=== PATIENT | female | born 1980 | race Caucasian/White ===

== ENCOUNTER 2020-10-21 11:13 | Emergency (ER) | payer BC, OTHER ==
[2020-10-21 12:03] LABS: Urine Blood Trace-lysed (Negative); Urine Glucose Negative (Negative); Urine Protein 2+ (Negative); Urine Specific Gravity >=1.030 (1.005-1.030); Urine pH 5.5 (5.0-7.0)
[2020-10-21 12:11] LABS: Absolute Lymphocytes (CBC) 0.8 K/uL (0.7-4.9); Basophils % 0.5 % (0-1.3); Hematocrit 39.2 % (36.0-45.0); Lymphocytes % 21.6 % (15.3-44.8); MPV 9.3 fL (7.6-11.3)
[2020-10-21 12:29] LABS: ALT/SGPT 34 U/L (12-78); AST/SGOT 27 U/L (15-37); Albumin 3.4 g/dL (3.4-5.0); Alkaline Phosphatase 80 U/L (45-117); BUN Blood Urea Nitrogen 9 mg/dL (7-18); Bicarbonate 24 mmol/L (21-32); Bilirubin Direct 0.1 mg/dL (0-0.2); Bilirubin Total 0.4 mg/dL (0.2-1.0); Glucose Level 136 mg/dL (74-106); Lipase 97 U/L (73-393); Potassium 3.9 mmol/L (3.5-5.1); Protein, Total 7.1 g/dL (6.4-8.2); Sodium Level 136 mmol/L (136-145)
--- NOTE | 2020-10-21 12:45 | RAD REPORT ---
EXAM DESCRIPTION: CT - Abdomen Pelvis W Contrast - 10/21/2020 12:20 pm CLINICAL HISTORY: Abdominal pain COMPARISON: none. TECHNIQUE: Computed axial tomography of the abdomen pelvis was obtained. 100 cc Isovue-300 was admin istered intravenously. Oral contrast was not requested which limits evaluation of bowel. All CT scans are performed using dose optimization technique as appropriate and may include automated exposure control or mA/KV adjustment according to patient size. FINDINGS: Mild to moderate bilateral patchy ground-glass opacities within the lungs bilaterally. Fatty liver. Cholelithiasis. Spleen, pancreas and adrenals unremarkable. Right kidney unremarkable. 2 millimeter left renal calculus. No hydronephrosis. Small renal cysts. Normal appendix. Peripherally calcified uterine mass measuring 6.7 centimeters. There is no evidence of diverticulitis. Small umbilical hernia IMPRESSION: Mild to moderate bilateral patchy ground-glass opacities within the lung bases bilateral ly. This can be seen with Covid pneumonia Cholelithiasis 6.7 centimeter peripherally calcified uterine mass likely a fibroid. Follow-up ultrasound in 6 months recommended to assess stability
[2020-10-21] MEDS ORDERED: ONDANSETRON 4 MG/2 ML VIAL ONE (13:00)
[2020-10-21] MEDS ORDERED: NA CHLORIDE 0.9% 1,000 ML ONE (13:01)
[2020-10-21 14:13] LABS: Urine Specific Gravity/Preg >1.030 (1.005-1.030)
[2020-10-21] MEDS ORDERED: CASIRIVIMAB/IMDEVIMAB 10 ML VIAL ONE (16:04)
[2020-10-21] MEDS ORDERED: NA CHLORIDE 0.9% 250 ML ONE (16:05)
--- NOTE | 2020-10-21 16:22 | EDPHYS ---
Physician Documentation [facility] Name: Carolina Boyce Age: 39 yrs Sex: Female : 1980 Arrival Date: 10/21/2020 Time: 11:18 Bed DIS11 Private MD: ED Physician Cosme Antonio HPI: 10/21 12:10 This 39 yrs old Female presents to ER via Ambulatory with complaints of rn Abdominal Pain, Dizziness, Vomiting. 12:11 The patient presents with abdominal pain in the left lower quadrant. rn 12:11 Onset: The symptoms/episode began/occurred 3 day(s) ago. The symptoms do not radiate. rn Associated signs and symptoms: Pertinent positives: nausea and vomiting, diarrhea, fever, Pertinent negatives: blood in stools, chest pain. The symptoms are described as achy, crampy. Modifying factors: The symptoms are alleviated by nothing, the symptoms are aggravated by touching the area. Severity of pain: At its worst the pain was moderate in the emergency department the pain is unchanged. The patient has not experienced similar symptoms in the past. The patient has not recently seen a physician. Patient reports thinks has Covid, reports generalized weakness/fatigue/dizziness. Reports biggest problem is left lower quadrant abdominal pain with nausea/vomiting/diarrhea. Reports mild cough but denies shortness of breath. States has been positive for Covid this past week. She was tested 2 days into illness and was negative. Also took 2 - tests at home. Historical: - Home Meds: 14:30 AMAUR THYROID [Active]; Iron CR Oral [Active]; Vitamin Oral [Active]; ld1 - PMHx: 14:30 Hypothyroidism; ld1 - Immunization history:: Client reports having NOT received the Covid vaccine. - Family history:: not pertinent. - Social history:: Smoking status: Patient denies any tobacco usage or history of. - Hospitalizations: : No recent hospitalization is reported. ROS: 12:11 Constitutional: Positive for fever and chills Eyes: Negative for injury, pain, redness, rn and discharge, ENT: Positive for sore throat Neck: Negative for injury, pain, and swelling, Cardiovascular: Negative for chest pain, palpitations, and edema, Respiratory: Positive for mild cough Abdomen/GI: Positive for abdominal pain/vomiting/diarrhea Back: Negative for injury and pain, : Negative for injury, bleeding, discharge, and swelling, MS/Extremity: Negative for injury and deformity, Skin: Negative for injury, rash, and discoloration, Neuro: Positive for generalized weakness/dizziness/fatigue 12:11 All other systems are negative. Exam: 12:11 Constitutional: This is a well developed, well nourished patient who is awake, alert, rn sitting in wheelchair Head/Face: Normocephalic, atraumatic. Eyes: Pupils equal round and reactive to light, extra-ocular motions intact. ENT: Dry mucous membranes, no stridor Cardiovascular: Regular rate and rhythm. No pulse deficits. Respiratory: No increased work of breathing, no retractions or nasal flaring. Abdomen/GI: Soft, mild left lower quadrant tenderness, no masses, no guarding Skin: Warm, dry MS/ Extremity: Pulses equal, no cyanosis. Neuro: Awake and alert, GCS 15 Vital Signs: 11:35 BP 90 / 60; Pulse 77; Resp 18; Temp 98.5; Pulse Ox 93% on R/A; da3 14:30 BP 102 / 65; Pulse 80; Resp 18; Pulse Ox 95% on R/A; ld1 15:34 BP 126 / 51; Pulse 76; Resp 18; Pulse Ox 99% on R/A; ld1 MDM: 11:37 Patient medically screened. rn 16:19 Differential diagnosis: appendicitis, diverticulitis, gastritis, gastroesophageal rn reflux disease, non-specific abd pain, pancreatitis, urinary tract infection, Covid. Data reviewed: vital signs, nurses notes, lab test result(s), EKG, radiologic studies, CT scan, plain films, and as a result, I will discharge patient. Counseling: I had a detailed discussion with the patient and/or guardian regarding: the historical points, exam findings, and any diagnostic results supporting the discharge/admit diagnosis, lab results, radiology results, the need for outpatient follow up, to return to the emergency department if symptoms worsen or persist or if there are any questions or concerns that arise at home. Response to treatment: the patient's symptoms have markedly improved after treatment, and as a result, I will discharge patient. Special discussion: I discussed with the patient/guardian in detail that at this point there is no indication for admission to the hospital. It is understood, however, that if the symptoms persist or worsen the patient needs to return immediately for re-evaluation. ED course: Patient given Regeneron, given overweight and diabetic on Metformin. No indication for emergent admission. Oxygen 98%. Will DC home after infusion complete. 10/21 11:43 Order name: Basic Metabolic Panel 10/21 11:43 Order name: CBC with Diff; Complete Time: 12:31 10/21 11:43 Order name: Hepatic Function; Complete Time: 12:31 10/21 11:43 Order name: Lipase; Complete Time: 12:31 10/21 11:43 Order name: Basic Metabolic Panel; Complete Time: 12:31 [facility] 10/21 11:43 Order name: CT Abd/Pelvis - IV Contrast Only; Complete Time: 13:23 10/21 12:02 Order name: Urine --Ancillary (enter results); Complete Time: 14:28 ok 10/21 12:03 Order name: Urine Dipstick-Ancillary; Complete Time: 12:31 [facility] 10/21 13:02 Order name: CREATININE WHOLE BLOOD; Complete Time: 13:23 [facility] 10/21 15:30 Order name: SARS-COV-2 RT PCR [facility] 10/21 11:43 Order name: IV Saline Lock; Complete Time: 11:50 10/21 11:43 Order name: Labs collected and sent; Complete Time: 11:50 10/21 11:43 Order name: Urine Dipstick-Ancillary (obtain specimen); Complete Time: 13:52 10/21 11:43 Order name: Urine Test (obtain specimen); Complete Time: 13:52 rn Administered Medications: 12:46 Drug: NS 0.9% 1000 ml Route: IV; Rate: 1000 ml; Site: right antecubital; ss 12:46 Drug: Zofran (Ondansetron) 4 mg Route: IVP; Site: right antecubital; ss 16:15 Drug: REGEN-COV Dose Pack 120 mg/mL-120 mg/mL (EUA) 600 mg Route: IV; Rate: calculated ld1 rate; Site: right antecubital; Disposition Summary: 10/21/20 16:21 Discharge Ordered Location: Home rn Problem: new rn Symptoms: have improved rn Condition: Stable rn Diagnosis - Pneumonia due to SARS-associated coronavirus rn - Dehydration rn - Vomiting rn Followup: rn - With: Private Physician - When: As needed - Reason: Recheck today's complaints, Re-evaluation by your physician Discharge Instructions: - Discharge Summary Sheet rn - Dehydration, Adult rn - COVID-19 rn - COVID-19 Frequently Asked Questions rn Forms: - Medication Reconciliation Form rn - Thank You Letter rn - 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 EDMS EDMS 14:18 13:23 CORONAVIRUS+MR.LAB.BRZ ordered. EDMS EDMS
--- NOTE | 2020-10-21 16:22 | ER ---
Nurse's Notes [facility] Name: Carolina Boyce Age: 39 yrs Sex: Female : 1980 Arrival Date: 10/21/2020 Time: 11:18 Bed DIS11 Private MD: Diagnosis: Pneumonia due to SARS-associated coronavirus;Dehydration;Vomiting Presentation: 10/21 11:32 Chief complaint: Patient states: Stomach pain. Coronavirus screen: Client presents with da3 at least one sign or symptom that may indicate coronavirus-19. Ebola Screen: No symptoms or risks identified at this time. Risk Assessment: Do you want to hurt yourself or someone else? Patient reports no desire to harm self or others. 11:32 Method Of Arrival: Ambulatory da3 11:32 Acuity: PATY 3 da3 Triage Assessment: 11:37 General: Appears uncomfortable, Behavior is calm, cooperative. da3 Historical: - Home Meds: 14:30 AMAUR THYROID [Active]; Iron CR Oral [Active]; Vitamin Oral [Active]; ld1 - PMHx: 14:30 Hypothyroidism; ld1 - Immunization history:: Client reports having NOT received the Covid vaccine. - Family history:: not pertinent. - Social history:: Smoking status: Patient denies any tobacco usage or history of. - Hospitalizations: : No recent hospitalization is reported. Assessment: 14:29 General: Appears in no apparent distress. comfortable, Behavior is calm, cooperative, ld1 appropriate for age. Pain: Complains of pain in face Pain does not radiate. Pain currently is 8 out of 10 on a pain scale. Quality of pain is described as throbbing, Pain began 2-3 days ago. Is continuous. Neuro: Level of Consciousness is awake, alert, obeys commands, Oriented to person, place, time, situation. Cardiovascular: Capillary refill < 3 seconds Patient's skin is warm and dry. Respiratory: Airway is patent Respiratory effort is even, unlabored, Respiratory pattern is regular, symmetrical. GI: Abdomen is flat, non-distended, Bowel sounds present X 4 quads. Abd is soft Abdomen is tender to palpation. : No signs and/or symptoms were reported regarding the genitourinary system. EENT: No signs and/or symptoms were reported regarding the EENT system. Derm: No signs and/or symptoms reported regarding the dermatologic system. Musculoskeletal: No signs and/or symptoms reported regarding the musculoskeletal system. 14:40 Reassessment: Patient appears in no apparent distress at this time. Waiting on test ld1 results. Vital Signs: 11:35 BP 90 / 60; Pulse 77; Resp 18; Temp 98.5; Pulse Ox 93% on R/A; da3 14:30 BP 102 / 65; Pulse 80; Resp 18; Pulse Ox 95% on R/A; ld1 15:34 BP 126 / 51; Pulse 76; Resp 18; Pulse Ox 99% on R/A; ld1 ED Course: 11:18 Patient arrived in ED. ds1 11:34 Triage completed. da3 11:37 Cosme Antonio MD is Attending Physician. rn 11:50 Inserted saline lock: 20 gauge in right antecubital area, using aseptic technique. ga Blood collected. 12:20 CT Abd/Pelvis - IV Contrast Only In Process Unspecified. EDOR 14:31 Seda Rodriguez, RN is Primary Nurse. ld1 17:32 IV discontinued, intact, bleeding controlled, No redness/swelling at site. ld1 Administered Medications: 12:46 Drug: NS 0.9% 1000 ml Route: IV; Rate: 1000 ml; Site: right antecubital; ss 12:46 Drug: Zofran (Ondansetron) 4 mg Route: IVP; Site: right antecubital; ss 16:15 Drug: REGEN-COV Dose Pack 120 mg/mL-120 mg/mL (EUA) 600 mg Route: IV; Rate: calculated ld1 rate; Site: right antecubital; Outcome: 16:21 Discharge ordered by . rn 17:32 Discharged to home ambulatory. ld1 17:32 Condition: good 17:32 Discharge instructions given to patient, Instructed on discharge instructions, follow up and referral plans. medication usage, Demonstrated understanding of instructions, follow-up care, medications, Prescriptions given X 1. 17:33 Patient left the ED. ld1 Signatures: Dispatcher [employer] EDOR Preeti Guallpa ds1 Cosme Antonio MD MD rn Smirch, Shelby, RN RN ss Thompson, Moriah ga Seda Rodriguez RN RN ld1 Johnnie Tucker RN RN da3 Corrections: (The following items were deleted from the chart) 14:18 13:55 CORONAVIRUS+MRLAURA.BRZ drawn and sent. ld1 EDMS
[2020-10-21] MEDS ORDERED: NA CHLORIDE 0.9% 50 ML ONE (17:40)
[2020-10-21 18:02] VITALS: TEMP 98.5
[2020-10-21 18:09] VITALS: BP 126/51; O2SAT 99
== END 2020-10-21 17:33 | disposition home or self-care (01) ==
LOC: ER 11:13
DX: U07.1 COVID-19 (principal); J12.82 Pneumonia due to coronavirus disease 2019; E86.0 Dehydration; E03.9 Hypothyroidism, unspecified
CPT/HCPCS: 85025; 80048; 36415; 81025; 82565; 80076; 81003; 83690; 74177; 96375; 96374; 99284; U0003; Q9967; J7050; J7030; J2405

== ENCOUNTER 2024-01-11 06:04 | Observation (INO) | payer BC, OTHER ==
[2024-01-11] MEDS ORDERED: ONDANSETRON 4 MG/2 ML VIAL ONE ×2 (07:01→20:54)
[2024-01-11] MEDS ORDERED: MORPHINE 4 MG/ML SYR ONE (07:02)
[2024-01-11] MEDS ORDERED: NA CHLORIDE 0.9% 1,000 ML ONE (07:02)
[2024-01-11 07:19] LABS: Absolute Basophils 0.1 K/uL (0-0.5); Absolute Eosinophils 0.2 K/uL (0-0.5); Absolute Monocytes 0.6 K/uL (0.1-1.3); Absolute Neutrophil 6.2 K/uL (1.8-8.0); Eosinophils % 2.2 % (0-4.4); Hematocrit 36.8 % (36.0-45.0); Hemoglobin 12.7 g/dL (12.0-15.0); Lymphocytes % 21.7 % (15.3-44.8); MCH 30.1 pg (27.0-35.0); MCHC 34.4 g/dL (32.0-36.0); MCV 87.3 fL (80-100); MPV 8.8 fL (7.6-11.3); Monocytes % 7.1 % (3.3-12.3); Nucleated Red Blood Cells % 0.1 % (0-0); Platelets 286 thou/uL (152-406); RBC Red Blood Cell Count 4.22 M/uL (3.86-4.86); Red Cell Distribution Width 14.4 % (12.1-15.2)
[2024-01-11 07:25] LABS: Specific Gravity 1.018 (1.005-1.030)
[2024-01-11 07:26] LABS: Specific Gravity 1.018 (1.005-1.030); Urine Bilirubin NEGATIVE (Negative); Urine Blood 1+ (Negative); Urine Clarity Clear (Clear); Urine Color Light-Yellow (Yellow); Urine Glucose Negative (Negative); Urine Ketones NEGATIVE (Negative); Urine Nitrite Negative (Negative); Urine Protein NEGATIVE (Negative); Urine Urobilinogen Normal mg/dL (0.2-1.0); Urine pH 5.5 (5.0-7.0)
[2024-01-11 07:27] LABS: Sqamous Epithelial <5 /HPF (None Seen); Urine Ascorbic Acid Negative (Negative); Urine Culture Reflex Order NOT NEEDED; Urine Microscopic Reflex YN NO UMIC; Urine RBC <5 /HPF (None Seen); Urine WBC <5 /HPF (<5)
[2024-01-11 07:39] LABS: Albumin 3.2 g/dL (3.4-5.0); Albumin/Globulin Ratio 0.9 (1.1-1.8); Bilirubin Total 0.3 mg/dL (0.2-1.0); Globulin 3.7 g/dL (2.3-3.5); Protein, Total 6.9 g/dL (6.4-8.2)
--- NOTE | 2024-01-11 07:46 | RAD REPORT ---
EXAM: Right upper quadrant ultrasound. CLINICAL HISTORY: ABD PAIN COMPARISON: None. FINDINGS: Gallbladder: Shadowing gallstone is present in the gallbladder neck region. 5 mm polyp is also likely present along the wall of the gallbladder. Bile ducts: No intrahepatic or extrahepatic biliary dilatation. Common bile duct measures 7 mm. Limited imaging of the liver shows no concerning finding. IMPRESSION: Cholelithiasis noted. Common bile duct is mildly enlarged measuring 7 mm. MRCP may be of value for further evaluation if cl inically indicated.
--- NOTE | 2024-01-11 08:00 | RAD REPORT ---
EXAMINATION: CT ABDOMEN AND PELVIS WITH CONTRAST CLINICAL INDICATION: ABD PAIN TECHNIQUE: CT abdomen and pelvis was performed, after the administration of IV contrast, as per [facility] protocol. Axial, sagittal and coronal reconstructions were obtained. One or more of the following dose reduction techniques were used: Automated exposure control, adjustment of the mA and k V according to patient size, and iterative reconstruction. Unless otherwise specified, incidental findings do not require dedicated imaging follow-up. COMPARISON: 10/21/2020 FINDINGS: LOWER CHEST: The visualized lung bases are clear. LIVER: Significant fatty liver with hepatomegaly present. No focal lesion or biliary dilitation. Cho lelithiasis. SPLEEN: Normal size. No focal lesion. PANCREAS: No mass, ductal dilation, or [place]-pancreatic fluid. ADRENALS: Normal; no mass. KIDNEYS: Normal size and contour. No hydronephrosis. GASTROINTESTINAL TRACT: No evidence of free air, significant intra-abdominal free fluid, bowel obstru ction or abscess. APPENDIX: Normal appendix. LYMPH NODES: No lymphadenopathy. MUSCULOSKELETAL: No acute or suspicious osseous abnormality. ADDITIONAL FINDINGS: Significantly enlarged uterus with large calcified fibroid on the left measuring 6 cm. IMPRESSION: Cholelithiasis. Significant fatty liver. Enlarged uterus with calcified fibroid measuring 6 cm.
[2024-01-11] MEDS ORDERED: LORazepam 2 MG/ML VIAL ONE (16:29)
--- NOTE | 2024-01-11 17:55 | RAD REPORT ---
EXAMINATION: MR CHOLANGIOGRAM CLINICAL INDICATION: Abdominal pain TECHNIQUE: Magnetic resonance cholangiopancreatogram was performed. 3D MIP reconstruction done. COMPARISON: CT and ultrasound January 11, 2024 FINDINGS: 2.6 mm stone is present within the neck of the gallbladder. Mild gallbladder wall thickening. Common bile duct normal caliber. A filling defect within the duct not noted Pancreatic duct caliber. IMPRESSION: Cholelithiasis Mild gallbladder wall thickening suspicious for cholecystitis
[2024-01-11] MEDS ORDERED: PIPERACIL/TAZO 3.375 GM VIAL IV ONE (18:13)
[2024-01-11] MEDS ORDERED: NA CHLORIDE 0.9% 100 ML ONE (18:13)
--- NOTE | 2024-01-11 18:18 | ER ---
Nurse's Notes [facility] Name: Carolina Boyce Age: 43 yrs Sex: Female : 1980 Arrival Date: 01/11/2024 Time: 06:04 Bed 8 Private MD: Diagnosis: Cholecystitis, unspecified;Upper abdominal pain, unspecified Presentation: 01/10 06:14 Chief complaint: Patient states: right upper quadrant pain, nausea, and diarrhea. ha1 06:14 Coronavirus screen: Client denies travel out of the [place] in the last 14 days. Ebola ha1 Screen: No symptoms or risks identified at this time. Initial Sepsis Screen: Does the patient meet any 2 criteria? No. Patient's initial sepsis screen is negative. Does the patient have a suspected source of infection? No. Patient's initial sepsis screen is negative. Risk Assessment: Do you want to hurt yourself or someone else? Patient reports no desire to harm self or others. Onset of symptoms was January 11, 2024. 06:14 Method Of Arrival: Ambulatory ha1 06:14 Acuity: PATY 3 ha1 Triage Assessment: 06:15 General: Appears comfortable, Behavior is cooperative. Pain: Complains of pain in right ha1 upper quadrant Pain does not radiate. Pain currently is 9 out of 10 on a pain scale. Neuro: Level of Consciousness is awake, alert, obeys commands, Oriented to person, place, time, situation. Cardiovascular: Patient's skin is warm and dry. Respiratory: Airway is patent Respiratory effort is even, unlabored, Respiratory pattern is regular, symmetrical. GI: Abdomen is round non-distended, obese, Reports upper abdominal pain, diarrhea, nausea. ORDER PICKER: 22:10 unknown bm8 Historical: - Allergies: 06:39 No Known Allergies; ha1 - PMHx: 06:39 Hypothyroidism; ha1 - PSHx: 06:39 section; ha1 - Immunization history:: Adult Immunizations up to date. - Infectious Disease History:: Denies. - Social history:: Smoking status: Patient denies any tobacco usage or history of. Screenin:08 [facility] ED Fall Risk Assessment (Adult) History of falling in the last 3 months, jj7 including since admission No falls in past 3 months (0 pts) Confusion or Disorientation No (0 pts) Intoxicated or Sedated No (0 pts) Impaired Gait No (0 pts) Mobility Assist Device Used No (0 pt) Altered Elimination No (0 pt) Score/Fall Risk Level 0 - 2 = Low Risk Oriented to surroundings, Maintained a safe environment, Educated pt \T\ family on fall prevention, incl call for assistance when getting out of bed, Assessed \T\ reinforced patient's understanding of fall precautions. Abuse screen: Denies threats or abuse. Nutritional screening: No deficits noted. Tuberculosis screening: No symptoms or risk factors identified. Assessment: 07:08 General: Appears in no apparent distress. uncomfortable, Behavior is calm, cooperative, jj7 appropriate for age. Pain: Complains of pain in right upper quadrant. GI: Bowel sounds present X 4 quads. Abdomen is tender to palpation in right upper quadrant. 11:01 Reassessment: Patient and/or family updated on plan of care and expected duration. Pain tm6 level reassessed. Patient is alert, oriented x 3, equal unlabored respirations, skin warm/dry/pink. Patient states feeling better. 11:01 Reassessment: patient states she is feeling better than when she came in. Her pain is tm6 5/10, but does not want any pain medication at this time. 12:04 Reassessment: Patient and/or family updated on plan of care and expected duration. Pain tm6 level reassessed. Patient is alert, oriented x 3, equal unlabored respirations, skin warm/dry/pink. 13:34 Reassessment: Patient and/or family updated on plan of care and expected duration. Pain tm6 level reassessed. Patient is alert, oriented x 3, equal unlabored respirations, skin warm/dry/pink. 19:07 Reassessment: Patient appears in no apparent distress at this time. Patient and/or bm8 family updated on plan of care and expected duration. Pain level reassessed. Patient is alert, oriented x 3, equal unlabored respirations, skin warm/dry/pink. GI: Abdomen is flat, non-distended, Bowel sounds present X 4 quads. Abdomen is tender to palpation in right upper quadrant Patient currently denies nausea, vomiting. Vital Signs: 06:14 BP 110 / 72; Pulse 72; Resp 17 S; Temp 97.6(T); Pulse Ox 96% on R/A; Weight 91.63 kg; ha1 Height 5 ft. 5 in. ; 10:57 BP 110 / 70; Pulse 61; Resp 16; Pulse Ox 98% on R/A; MAP 82 mmHg; Pain 5/10; tm6 12:03 BP 93 / 58; Pulse 62; Pulse Ox 95% on R/A; MAP 69 mmHg; tm6 13:34 BP 98 / 74; Pulse 61; Pulse Ox 97% on R/A; MAP 83 mmHg; tm6 19:08 BP 111 / 66; Pulse 60; Resp 17; Temp 97.6; Pulse Ox 97% ; Pain 3/10; bm8 22:03 BP 101 / 68; Pulse 93; Resp 17; Temp 97.8; Pulse Ox 97% ; Pain 3/10; bm8 06:14 Body Mass Index 33.61 (91.63 kg, 165.1 cm) ha1 10:57 Pain Scale: Adult tm6 19:08 Pain Scale: Adult bm8 22:03 Pain Scale: Adult bm8 [place] Coma Score: 19:08 Eye Response: spontaneous(4). Motor Response: obeys commands(6). Verbal Response: bm8 oriented(5). Total: 15. 22:03 Eye Response: spontaneous(4). Motor Response: obeys commands(6). Verbal Response: bm8 oriented(5). Total: 15. ED Course: 06:06 Patient arrived in ED. jj6 06:17 Amilcar Araiza, RAJESH is Primary Nurse. rg5 06:39 Triage completed. ha1 06:45 Jason Trujillo MD is Attending Physician. ec2 06:55 Inserted saline lock: 20 gauge in left antecubital area, using aseptic technique. Blood jj7 collected. Flushed with 10 mL NS. 07:08 Patient has correct armband on for positive identification. Bed in low position. Call jj7 light in reach. Provided Education on: USE OF CALL SHOEMAKER. Warm blanket given. 07:08 No provider procedures requiring assistance completed. jj7 07:45 Mason Canales DO is Attending Physician. ec2 16:52 Cholangiogram In Process Unspecified. EDMS 18:16 Prince Seay MD is Hospitalizing Provider. ms3 22:09 Patient admitted, IV remains in place. bm8 22:10 Arm band placed on right wrist. bm8 Administered Medications: 07:07 Drug: Ondansetron IVP 4 mg IVP once; over 2 minutes Route: IVP; Site: left antecubital; jj7 22:05 Follow up: Response: No adverse reaction bm8 07:07 Drug: NS 0.9% IV 1000 ml IV at 1 bolus Per protocol; to be given as a bolus over 60 jj7 minutes Route: IV; Rate: 1 bolus; Site: left antecubital; 22:04 Follow up: Response: No adverse reaction; IV Status: Completed infusion; IV Intake: bm8 1000ml 07:08 Drug: morphine IVP or IV 4 mg IVP once over 4 mins Route: IVP; Infused Over: 4 mins; jj7 Site: left antecubital; 22:04 Follow up: Response: No adverse reaction bm8 16:37 Drug: Ativan IVP 1 mg IVP once Route: IVP; Site: right antecubital; tm6 18:11 Follow up: Response: No adverse reaction tm6 18:45 Drug: Piperacillin-Tazobactam IVPB 3.375 grams IVPB once over 60 mins; (mix in NS 100 tm6 mL) Route: IVPB; Infused Over: 60 mins; Site: left antecubital; 22:04 Follow up: Response: No adverse reaction; IV Status: Completed infusion; IV Intake: bm8 100ml Medication: 07:08 VIS not applicable for this client. jj7 Intake: 22:04 IV: 100ml; Total: 100ml. bm8 22:04 IV: 1000ml; Total: 1100ml. bm8 Outcome: 18:16 Decision to Hospitalize by Provider. ms3 22:09 Admitted to Med/surg accompanied by tech, via wheelchair, room 207, bm8 22:09 Condition: stable 22:09 Instructed on follow up and referral plans. the need for admit, Demonstrated understanding of 22:25 Patient left the ED. bm8 Signatures: Dispatcher [employer] EDMS Mason Canales DO DO ms3 Marge Richardson jj6 Thelma Sr, RN RN ha1 Aster Smith RN RN jj7 Jason Trujillo MD MD ec2 Navdeep Cassidy RN RN tm6 Dru Escobar RN RN bm8 Amilcar Araiza RN RN rg5 Corrections: (The following items were deleted from the chart) 07:11 07:08 Inserted saline lock: 20 gauge in left antecubital area, using aseptic technique. jj7 Blood collected. Flushed with 10 mL NS jj7
--- NOTE | 2024-01-11 18:18 | EDPHYS ---
Physician Documentation [facility] Name: Carolina Boyce Age: 43 yrs Sex: Female : 1980 Arrival Date: 01/11/2024 Time: 06:04 Bed 8 Private MD: ED Physician Mason Canales HPI: 01/10 06:59 This 43 yrs old Female presents to ER via Ambulatory with complaints of ec2 Abdominal Pain, Nausea, Diarrhea. 06:59 Patient arrives today for right upper quadrant abdominal pain as well as nausea and ec2 vomiting that started early this morning. Reports pain is nonradiating. No specific alleviating or exacerbating factors. Denies urinary complaints.. 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 - Infectious Disease History:: Denies. - Social history:: Smoking status: Patient denies any tobacco usage or history of. ROS: 06:59 Constitutional: as per hpi ec2 Exam: 06:59 Constitutional: GEN: NAD Head: atraumatic Eyes: EOMI Ears: External ears are ec2 normal. CV: regular rate LUNGS: no respiratory distress ABD: non-distended, soft, tender in the right upper quadrant, not guarding, not rigid SKIN: no evidence of rashes MSK: no evidence of trauma Vital Signs: 06:14 BP 110 / 72; Pulse 72; Resp 17 S; Temp 97.6(T); Pulse Ox 96% on R/A; Weight 91.63 kg; ha1 Height 5 ft. 5 in. ; 10:57 BP 110 / 70; Pulse 61; Resp 16; Pulse Ox 98% on R/A; MAP 82 mmHg; Pain 5/10; tm6 12:03 BP 93 / 58; Pulse 62; Pulse Ox 95% on R/A; MAP 69 mmHg; tm6 13:34 BP 98 / 74; Pulse 61; Pulse Ox 97% on R/A; MAP 83 mmHg; tm6 19:08 BP 111 / 66; Pulse 60; Resp 17; Temp 97.6; Pulse Ox 97% ; Pain 3/10; bm8 22:03 BP 101 / 68; Pulse 93; Resp 17; Temp 97.8; Pulse Ox 97% ; Pain 3/10; bm8 06:14 Body Mass Index 33.61 (91.63 kg, 165.1 cm) ha1 10:57 Pain Scale: Adult tm6 19:08 Pain Scale: Adult bm8 22:03 Pain Scale: Adult bm8 Nestor Coma Score: 19:08 Eye Response: spontaneous(4). Motor Response: obeys commands(6). Verbal Response: bm8 oriented(5). Total: 15. 22:03 Eye Response: spontaneous(4). Motor Response: obeys commands(6). Verbal Response: bm8 oriented(5). Total: 15. MDM: 06:45 Medical Screening Exam initiated ec2 06:59 Data reviewed: vital signs. ED course: Patient arrives today for abdominal pain. ec2 Examination remarkable for abdominal findings as above. Will obtain lab work, urine studies, ultrasound. Differential includes processes such as cholelithiasis, cholecystitis, urinary tract infection.. 07:33 ED course: Patient with blood present in urine, will add on CT abdomen pelvis to ec2 evaluate for ureteral stone or renal pathology.. 07:40 Transition of care: After a detail discussion of the patient's case, care is ec2 transferred to Mason Canales DO. 09:07 ED course: Updated patient on US results showing dilated common bile duct. LFTs and ms3 bilirubin normal. Will obtain MRCP per radiology recs.. 13:20 ED course: Called MRI for update on MRCP and will get to patient around 3:30-4 PM. ms3 Discussed this with patient and she is comfortable waiting for MRCP. 18:17 Differential diagnosis: Nonspecific abd pain, cholecystitis, viral gastroenteritis, ms3 gastroenteritis. Consideration of Admission/Observation Patient was admitted/placed on observation. Management of patient was discussed with the following: National Sales Executive: Dr Willem France- would like patient admitted to hospitalist service. Would like abx. I considered the following discharge prescriptions or medication management in the emergency department Medications were administered in the Emergency Department. See MAR. Counseling: I had a detailed discussion with the patient and/or guardian regarding the historical points, exam findings, and any diagnostic results supporting the discharge/admit diagnosis, lab results, radiology results, the need for further work-up and treatment in the hospital. 18:24 Management of patient was discussed with the following: Hospitalist: Dr Marcos. ms3 01/10 07:21 Order name: CBC with Automated Diff; Complete Time: 07:22 EDMS 01/10 07:25 Order name: Test, Urine; Complete Time: 07:30 EDMS 01/10 07:27 Order name: Urinalysis w/ reflexes; Complete Time: 07:30 EDMS 01/10 07:39 Order name: Comprehensive Metabolic Panel; Complete Time: 07:40 EDMS 01/10 07:39 Order name: Lipase; Complete Time: 07:40 EDMS 01/10 08:53 Order name: CBC with Automated Diff EDMS 01/10 08:53 Order name: Comprehensive Metabolic Panel EDMS 01/10 08:53 Order name: Lipase EDMS 01/10 08:53 Order name: Test, Urine EDMS 01/10 08:53 Order name: Urinalysis w/ reflexes EDMS 01/10 18:27 Order name: Lactate w/ 2H reflex if indic. EDMS 01/10 18:27 Order name: Magnesium EDMS 01/10 18:27 Order name: Phosphorus EDMS 01/10 18:27 Order name: Urinalysis w/ reflexes EDMS 01/10 18:27 Order name: Basic Metabolic Panel EDMS 01/10 18:27 Order name: Basic Metabolic Panel EDMS 01/10 18:27 Order name: Comprehensive Metabolic Panel EDMS 01/10 18:27 Order name: Comprehensive Metabolic Panel EDMS 01/10 07:46 Order name: US; Complete Time: 09:02 EDMS 01/10 08:00 Order name: CT; Complete Time: 09:02 EDMS 01/10 09:00 Order name: Abdomen Exam Limited EDMS 01/10 09:01 Order name: Abdomen EDMS 01/10 09:13 Order name: Cholangiogram; Complete Time: 18:18 EDMS 01/10 18:27 Order name: CONS Physician Consult EDMS 01/10 06:17 Order name: IV Saline Lock; Complete Time: 07:08 ec2 01/10 06:17 Order name: Labs collected and sent; Complete Time: 07:08 ec2 Administered Medications: 07:07 Drug: Ondansetron IVP 4 mg IVP once; over 2 minutes Route: IVP; Site: left antecubital; jj7 22:05 Follow up: Response: No adverse reaction bm8 07:07 Drug: NS 0.9% IV 1000 ml IV at 1 bolus Per protocol; to be given as a bolus over 60 jj7 minutes Route: IV; Rate: 1 bolus; Site: left antecubital; 22:04 Follow up: Response: No adverse reaction; IV Status: Completed infusion; IV Intake: bm8 1000ml 07:08 Drug: morphine IVP or IV 4 mg IVP once over 4 mins Route: IVP; Infused Over: 4 mins; jj7 Site: left antecubital; 22:04 Follow up: Response: No adverse reaction bm8 16:37 Drug: Ativan IVP 1 mg IVP once Route: IVP; Site: right antecubital; tm6 18:11 Follow up: Response: No adverse reaction tm6 18:45 Drug: Piperacillin-Tazobactam IVPB 3.375 grams IVPB once over 60 mins; (mix in NS 100 tm6 mL) Route: IVPB; Infused Over: 60 mins; Site: left antecubital; 22:04 Follow up: Response: No adverse reaction; IV Status: Completed infusion; IV Intake: bm8 100ml Disposition Summary: 01/11/24 18:16 Hospitalization Ordered Notes: Hospitalization Status: Inpatient Admission ms3 Provider: Prince Dawood ne3 [facility] ms3 Condition: Stable ms3 Problem: new ms3 Symptoms: are unchanged ms3 Bed/Room Type: [place] ms3 Room Assignment: 207(01/11/24 21:26) Diagnosis - Cholecystitis, unspecified ms3 - Upper abdominal pain, unspecified ms3 Forms: - Medication Reconciliation Form ms3 - SBAR form ms3 - Leadership Thank You Letter ms3 Signatures: Dispatcher [employer] Tosin Tompkins RN RN cg Mason Canales DO DO ms3 Thelma Sr RN RN ha1 Aster Smith RN RN jj7 Jason Trujillo MD MD ec2 Navdeep Cassidy RN RN tm6 Dru Escobar RN bm8 Corrections: (The following items were deleted from the chart) 08:51 08:51 Abdomen Limited+US.RAD.BRZ ordered. EDMS EDMS 08:56 08:50 CBC+H.LAB.BRZ ordered. EDMS EDMS 08:56 08:50 COMPREHENSIVE METABOLIC PANEL+C.LAB.BRZ ordered. EDMS EDMS 08:56 08:50 LIPASE+C.LAB.BRZ ordered. EDMS EDMS 08:56 08:50 Test, Urine+UC.LAB.BRZ ordered. EDMS EDMS 08:56 08:50 Urinalysis+U.LAB.BRZ ordered. EDMS EDMS 09:00 08:58 Abdomen Pelvis W Con+CT.RAD.BRZ ordered. EDMS EDMS 21:26 18:16 ms3 cg
[2024-01-11] MEDS ORDERED: ACETAMINOPHEN 500 MG TAB PO PRN (18:23)
--- NOTE | 2024-01-11 18:28 | P.HP ---
Certification for Inpatient Patient admitted to: Observation With expected LOS: <2 Midnights Practitioner: I am a practitioner with admitting privileges, knowledge of patient current condition, hospital course, and medical plan of care. Services: Services provided to patient in accordance with Admission requirements found in Title 42 Section 412.3 of the Code of Federal Regulations Patient History Date of Service: 01/11/24 Reason for admission: Abdominal pain History of Present Illness: Patient is a 43-year-old female with a past medical history of hypothyroidism. Patient is being admitted for acute cholecystitis after she presented with abdominal pain. Abdominal ultrasound and CT showed cholelithiasis with possible common bile dilatation. MRCP confirmed cholelithiasis without evidence of choledocholithiasis. There is concern for cholecystitis as well. General surgery has been consulted by ER. There is a plan to admit the patient for cholecystectomy tomorrow. Allergies No Known Allergies Allergy (Verified 04/06/16 06:22) Home Medications: Iron 1 tab PO DAILY 04/06/16 Vitamin [ VITAMIN*] 1 tab PO DAILY 04/06/16 Ranitidine [Zantac*] 150 mg PO BID 04/06/16 Thyroid Tab [Ellery Thyroid*] 2 gr PO DAILY 04/06/16 - Social History Alcohol use: No CD- Drugs: No Caffeine use: No Physical Examination - Physical Exam General: In no apparent distress HEENT: Atraumatic, Normocephalic Respiratory: Clear to auscultation bilaterally, Normal air movement Cardiovascular: No edema, Normal pulses, Regular rate/rhythm, Normal S1 S2 Gastrointestinal: Soft and benign, Tenderness (RUQ tenderness) Neurological: Normal speech - Studies Laboratory Data (last 24 hrs) 01/11/24 01/11/24 01/11/24 07:00 07:00 06:17 WBC 9.10 Hgb 12.7 Hct 36.8 Plt Count 286 Sodium 135 L Cancelled Potassium 4.0 Cancelled BUN 11 Cancelled Creatinine 0.67 Cancelled Glucose 116 H Cancelled Total Bilirubin 0.3 Cancelled AST 18 Cancelled ALT 32 Cancelled Alkaline Phosphatase 76 Cancelled Lipase 32 Cancelled 01/11/24 06:17 WBC Cancelled Hgb Cancelled Hct Cancelled Plt Count Cancelled Sodium Potassium BUN Creatinine Glucose Total Bilirubin AST ALT Alkaline Phosphatase Lipase Assessment and Plan - Problems (Diagnosis) (1) Cholecystitis, acute with cholelithiasis Current Visit: Yes Status: Acute (2) Hypothyroidism Current Visit: Yes Status: Acute - Plan Assessment This is a 43-year-old female with a history of hypothyroidism who is being admitted for acute cholecystitis with gallstones. Patient does not meet criteria for sepsis. Acute calculus cholecystitis Hypothyroidism Plan: Will admit under observation IV fluid, pain control and empiric antibiotics N.p.o. after midnight for cholecystectomy tomorrow Antiemetics, PPI and pain control General Surgery has been consulted Patient is full code - Advance Directives Does patient have a Living Will: No Does patient have a Durable POA for Healthcare: No
[2024-01-11] MEDS ORDERED: SODIUM CHLORIDE 0.9% 10ML INJ IV PRN (18:29)
[2024-01-11] MEDS ORDERED: PIPER TAZO 3.375 GM in NA CHLORIDE 0.9% 100 ML IV SCH (18:45)
[2024-01-11] MEDS: ONDANSETRON 4 MG/2 ML VIAL IV PRN (20:57)
[2024-01-11 21:36] LABS: Phosphorus 3.3 mg/dL (2.5-4.9)
[2024-01-11 21:41] LABS: Magnesium 1.6 mg/dL (1.6-2.4)
[2024-01-11] MEDS: PANTOPRAZOLE 40 MG INJ IVP SCH (22:42)
[2024-01-11] MEDS: MAGNESIUM SULFATE 1 gm IVPB 1 GM/100 ML BAG IV ONE (22:44)
[2024-01-11] MEDS: NA CHLORIDE 0.9% 1,000 ML IV SCH (22:45)
[2024-01-12] MEDS: PIPER TAZO 3.375 GM in NA CHLORIDE 0.9% 100 ML IV SCH (00:57)
[2024-01-12 02:47] VITALS: BMI 33.6
[2024-01-12 06:09] LABS: Albumin 3.3 g/dL (3.4-5.0); Albumin/Globulin Ratio 0.9 (1.1-1.8); Globulin 3.7 g/dL (2.3-3.5)
[2024-01-12] MEDS: SUCCINYLCHOLINE 20 MG/ML (10 ML) IV ONE (13:03)
[2024-01-12] MEDS ORDERED: FENTANYL CITR 100 MCG/2 ML ONE (13:06)
[2024-01-12] MEDS ORDERED: propofoL 200 MG/20 ML VIAL IV ONE (13:06)
[2024-01-12] MEDS ORDERED: MIDAZOLAM HCL 2 MG/2 ML INJ ONE (13:07)
[2024-01-12] MEDS ORDERED: ROCURONIUM 50 MG/5 ML VIAL IV ONE (13:07)
[2024-01-12] MEDS ORDERED: dexAMETHasone 4 MG/ML VIAL ONE (13:34)
[2024-01-12] MEDS ORDERED: ONDANSETRON 4 MG/2 ML VIAL ONE (13:34)
[2024-01-12] MEDS ORDERED: NEOSTIGMINE 1 MG/ML -10 ML VIAL ONE (13:48)
[2024-01-12] MEDS ORDERED: GLYCOPYRROLATE 0.2 MG/ML SYR ONE (13:49)
--- NOTE | 2024-01-12 13:59 | P.BOP ---
Preoperative diagnosis: Acute cholecystitis, symptomatic cholelithiasis Postoperative diagnosis: same Primary procedure: Laparoscopic cholecystectomy Broadband Installer: Isabel Delacruz ([place]) Estimated blood loss: <10cc Specimen: gb Findings: as above Anesthesia: General Complications: None Transferred to: Recovery Room Condition: Good
[2024-01-12] MEDS ORDERED: HYDROCODONE/APAP 5/325 MG TAB PO PRN (14:00)
[2024-01-12] MEDS: FENTANYL CITR 100 MCG/2 ML ONE (14:08)
[2024-01-12] MEDS: KETOROLAC 30 MG/ML INJ ONE (14:10)
[2024-01-12] MEDS: ONDANSETRON 4 MG/2 ML VIAL ONE (14:15)
[2024-01-12] MEDS: HYDROMORPHONE HCL 1 MG/ML INJ ONE (14:15)
[2024-01-12 14:47] VITALS: O2SAT 96
--- NOTE | 2024-01-12 15:07 | P.DS ---
Admission Date: 01/11/24 Discharge Date: 01/12/24 Disposition: ROUTINE DISCHARGE Discharge Condition: GOOD Reason for Admission: Abdominal pain Consultations: Dr. France Procedures: Lap cholecystectomy Brief History of Present Illness: Patient is a 43-year-old female with a past medical history of hypothyroidism. Patient is being admitted for acute cholecystitis after she presented with abdominal pain. Abdominal ultrasound and CT showed cholelithiasis with possible common bile dilatation. MRCP confirmed cholelithiasis without evidence of choledocholithiasis. There is concern for cholecystitis as well. General surgery has been consulted by ER. There is a plan to admit the patient for cholecystectomy tomorrow. Hospital Course: Ms. Boyce was admitted overnight for cholecystitis. She went for laparoscopic cholecystectomy. There were no complications. She will be discharged with [place] and Augmentin. She should continue the gallbladder eating plan and follow-up with Dr. France in 2 weeks. No lifting over 10 pounds, otherwise no restrictions. She voices understanding of plan of care and follow-up. Vital Signs/Physical Exam: Temp Pulse Resp BP Pulse Ox 97.6 F 68 16 101/60 94 01/12/24 14:46 01/12/24 14:46 01/12/24 14:46 01/12/24 14:46 01/12/24 08:00 General: Alert, In no apparent distress, Oriented x3 HEENT: Atraumatic, Normocephalic Neck: Supple, 2+ carotid pulse no bruit Respiratory: Clear to auscultation bilaterally, Normal air movement Cardiovascular: Normal pulses, Regular rate/rhythm, Normal S1 S2 Capillary refill: <2 Seconds Gastrointestinal: Hypoactive, No rebound, No guarding Musculoskeletal: No clubbing, No swelling Integumentary: No rashes Neurological: Normal speech, Normal tone, Normal affect Lymphatics: No axilla or inguinal lymphadenopathy External genitalia: Deferred Rectal: Deferred Laboratory Data at Discharge: WBC 9.10 thou/uL (4.3-10.9) 01/11/24 07:00 Hgb 12.7 g/dL (12.0-15.0) 01/11/24 07:00 Hct 36.8 % (36.0-45.0) 01/11/24 07:00 Plt Count 286 thou/uL (152-406) 01/11/24 07:00 Sodium 137 mEq/L (136-145) 01/12/24 05:40 Potassium 4.0 mEq/L (3.5-5.1) 01/12/24 05:40 BUN 6 mg/dL (7-18) L 01/12/24 05:40 Creatinine 0.75 mg/dL (0.55-1.02) 01/12/24 05:40 Glucose 104 mg/dL (74-106) 01/12/24 05:40 Phosphorus 3.3 mg/dL (2.5-4.9) 01/11/24 20:55 Magnesium 2.0 mg/dL (1.6-2.4) 01/12/24 05:40 Total Bilirubin 1.0 mg/dL (0.2-1.0) 01/12/24 05:40 AST 27 U/L (15-37) 01/12/24 05:40 ALT 34 U/L (13-56) 01/12/24 05:40 Alkaline Phosphatase 66 U/L (45-117) 01/12/24 05:40 Lipase 32 U/L (13-75) 01/11/24 07:00 Home Medications: Amox/Clavulanate [Augmentin 875-125 Tab] 875 mg PO BID #14 tab 01/12/24 Hydrocodone 5/APAP 325 [[place] 5/325] 1 tab PO Q6H PRN #15 tab 01/12/24 New Medications: Amox/Clavulanate [Augmentin 875-125 Tab] 875 mg PO BID #14 tab Hydrocodone 5/APAP 325 [[place] 5/325] 1 tab PO Q6H PRN #15 tab PRN Reason: Pain Physician Discharge Instructions: Keep area dry for 48h then may remove outer dressing and shower. then, Cover monico with triple abx and bandaid. Diet: AHA Activity: No lifting more than 10 lbs Followup: Willem France MD [ACTIVE - CAN ADMIT] - 1 Week NONE,NONE [Primary Care Provider] -
--- NOTE | 2024-01-12 16:23 | CON ---
Date of Consultation: 01/12/2024 Reason For Service: Acute cholecystitis, symptomatic cholelithiasis. History Of Present Illness: This is the case of a female, who comes to us with epigastric right uppe r quadrant pain radiating to the back associated with nausea and vomiting. The patient has history o f hypothyroidism. No previous episode. During the ultrasound, the patient found to have cholelithia sis with common bile duct dilatation. So MRCP was done yesterday afternoon, found to have no stone i n the common bile duct, but she has stone impacted in the neck of the gallbladder. So general surger y was called for cholecystectomy since the pain was not improving. She denies any dysuria, hematuria , hematochezia, melena. Denies any recent traveling out of the country. Denies any family member si ck at home. Allergies: NONE. Medications: Zantac. Social History: She does not smoke. She does not drink alcohol. Family History: Noncontributory. Surgeries: C-sections. Physical Examination: Vital Signs: Reviewed. General: The patient is awake, alert. HEENT: Pupils are equal and reactive. Anicteric. Neck: Supple. Chest: Clear. Heart: S1, S2. Abdomen: Epigastric right upper quadrant pain with Short sign positive. Breasts, Rectal, Pelvic: Deferred. Extremities: Good capillary refill. Laboratory Data: Blood work shows WBC count of 9, hemoglobin 12.7. Bilirubin of 0.3, lipase 32. MR CP, ultrasound reviewed and CAT scan reviewed with the patient. We explained to her the findings of common bile duct mildly enlarged, but MRCP did not reveal any stones in the common bile duct. Assessment: Acute cholecystitis, symptomatic cholelithiasis. The patient explained the options of l aparoscopic possible open cholecystectomy with benefits, alternatives, and risks including, but not l imited to infection, bleeding, damage to adjacent structures, anesthesia complication, choledocholith iasis, bile leak, pancreatitis, HI, even . She also understands this may not relieve her sympto ms, she might need more than one surgical intervention. She signed consent. The patient was booked in OR. FADUMO/TORREY Voice ID: [id number] Report ID: [id number]
[2024-01-12 17:19] VITALS: BP 95/63; TEMP 97.5
== END 2024-01-12 18:41 | disposition home or self-care (01) ==
LOC: ER 06:04 → ERHOLD 18:23 → 2ND 21:37
PROVIDERS: ADMIT Internal Medicine; ATTEND Internal Medicine
PROC: 0FT44ZZ Resection of Gallbladder, Percutaneous Endoscopic Approach (ICD-10-PCS; principal; 2024-01-12 13:00)
DX: K80.10 Calculus of gallbladder with chronic cholecystitis without obstruction (principal); E03.9 Hypothyroidism, unspecified
CPT/HCPCS: 85025; 36415 ×2; 83735 ×2; 81025; 84100; 83605; 88304; 81003; 83690; 80053 ×2; 74177; 74181; 76705; 94010; 99285; 47562; Q9967; J3475; J2704; J1100; J2710; J2543 ×4; J2470 ×2; J2250; J3010; J1171; J2405 ×4; G0378 ×5; J7030 ×4